=== PATIENT | male | born 1990 | race Hispanic/Latino ===

== ENCOUNTER 2023-08-12 18:33 | Emergency (ER) | payer OTHER ==
[~2023-08-12] VITALS: Ht 175.3 cm; Wt 108.4 kg
[2023-08-12] MEDS ORDERED: NAPR-1084 PO (20:51)
[2023-08-12 21:47] VITALS: BP 122/74; PULSE 88; RESP 16; O2SAT 98
[2023-08-12] MEDS: NAPROXEN 500 MG TABLET PO ONE (21:54)
== END 2023-08-12 22:23 | disposition home or self-care (01) ==
LOC: EDH 18:33
DX: S39.011A Strain of muscle, fascia and tendon of abdomen, initial encounter (principal); X58.XXXA Exposure to other specified factors, initial encounter; Y93.89 Activity, other specified; Y92.89 Other specified places as the place of occurrence of the external cause; Y99.8 Other external cause status
CPT/HCPCS: 76870